=== PATIENT | female | born 1960 | race African-American/Black ===

== ENCOUNTER → 2017-08-12 | Outpatient (CLI) | payer OTHER ==
[~2017-08-12] MED LIST: AMLODIPINE BESY10 MG PO; BENTYL20 M1 PO; HYDRALAZINE HCL25 MG PO; NEXIUM PO; TOPROL XL100 MG PO; VITAMIN B PO; ZOFRAN ODT4 MG/UDTAB PO
--- NOTE | ~2017-08-12 | MY29 ---
[facility] A Service of [facility] RADIOLOGY TEXT RESULTS PATIENT: JORGE ORELLANA LOCATION: [facility] : 58 UNIT #: [id number] AGE: [address]: KAYCE VALADEZ MD SEX: F ORDER DR: [id number] [facility] [place] [address] [place], [place] [address] [id number] O MR#: [id number] Acc #: [id number] NAME: JORGE ORELLANA : 1960 SEX: F STUDY DATE/TIME: 08/12/2017 16:41 UNIT: [facility] ROOM: STUDY DESCRIPTION: MY FADY SCREENING W/ CAD BILAT Attending Physician: Kayce Valadez M.D. Ordering Physician: Kayce Valadez M.D. Primary Care Physician: Kayce Valadez M.D. MEDICAL IMAGING REPORT This report is preliminary unless electronic signature is present EXAM Digital screening mammogram 08/12/2017 HISTORY 4-year-old woman no risk elevation. Annual screen. COMPARISON 04/11/2011, 04/18/2016. FINDINGS Digital imaging of each breast was completed utilizing screening protocol. Review includes FDA-approved CAD device. Breast parenchyma is moderately dense and somewhat heterogeneous with an approximate 3 cm oil cyst projecting in the right axilla and 1.4 cm oil cyst left medial subareolar location. These are stable. I see no interval occurring breast mass. There are no suspicious microcalcifications and no architectural deformity. IMPRESSION Benign mammogram. Annual screening recommended. Patients over the age of 40 are entered into a reminder system with target due date for the next mammogram. A result letter will also be sent to the patient. BIRADS: 2 Benign finding Dictated by... Naren Andrew M.D. THIS IS AN ELECTRONICALLY VERIFIED REPORT Naren Andrew M.D. at 08/13/2017 11:37 AM [facility] A Service [facility] RADIOLOGY TEXT RESULTS PATIENT: JORGE ORELLANA LOCATION: [facility] : 58 UNIT #: [id number] AGE: [address]: KAYCE VALADEZ MD SEX: F ORDER DR: MARK/heidy TD: 08/13/2017 09:57 JOB #: [id number] MEDICAL IMAGING REPORT Page 1 of 1 COPY
== END | disposition home or self-care (01) ==
LOC: CWCC 16:33
DX: Z12.31 Encounter for screening mammogram for malignant neoplasm of breast (principal)
CPT/HCPCS: G0202